=== PATIENT | male | born 1980 | race Caucasian/White ===

== ENCOUNTER 2021-05-13 14:29 | Emergency (ER) | payer MEDICAID ==
[~2021-05-13] VITALS: Ht 172.7 cm; Wt 90.0 kg
[2021-05-13 14:37] VITALS: BP 128/86
[2021-05-13] MEDS ORDERED: HYDROCODONE/ACETAMINOPHEN 5/325MG TABLET PO STA (18:11)
[2021-05-13 18:36] LABS: BASOPHILS % 0.4 % (0.0-2.0); EOSINOPHILS % 1.4 % (0.0-5.0); HEMATOCRIT. 42.7 % (42.0-52.0); HEMOGLOBIN. 14.5 g/dL (14.0-18.0); LYMPHOCYTES % 33.3 % (20.0-50.0); MEAN CORPUSCULAR HEMOGLOBIN 28.5 pg (28.0-32.0); MEAN CORPUSCULAR VOLUME 84.1 fL (80.0-94.0); MONOCYTES % 11.1 % (2.0-8.0); NEUTROPHILS % 53.8 % (40.0-76.0); PLATELET 265 x1000/uL (130-400); RED BLOOD CELL COUNT 5.08 mill/uL (4.7-6.1); RED CELL DISTRIBUTION WIDTH 13.6 % (11.6-14.6)
[2021-05-13 18:40] LABS: CHLORIDE 109 mEq/L (98-107)
== END 2021-05-13 23:39 | disposition left against medical advice (07) ==
LOC: ER 14:29
DX: R10.32 Left lower quadrant pain (principal); R10.12 Left upper quadrant pain; R19.7 Diarrhea, unspecified
CPT/HCPCS: 36415; 80053; 85025; 99283

== ENCOUNTER 2021-05-14 08:13 | Inpatient (IN) | payer MEDICAID, OTHER ==
[~2021-05-14] VITALS: Ht 172.7 cm; Wt 98.9 kg
[2021-05-14] MEDS ORDERED: MAGNESIUM/ALUMINUM HYDROXIDE/SIMETHICONE 30ML UDC PO NR (11:16)
[2021-05-14] MEDS ORDERED: LIDOCAINE HCL 20 MG/ML 100ML BOTTLE PO NR (11:23)
[2021-05-14 11:29] LABS: BASOPHILS % 0.3 % (0.0-2.0); EOSINOPHILS % 0.9 % (0.0-5.0); HEMATOCRIT. 43.2 % (42.0-52.0); HEMOGLOBIN. 14.8 g/dL (14.0-18.0); LYMPHOCYTES % 29.7 % (20.0-50.0); MEAN CORPUSCULAR HEMOGLOBIN 29.3 pg (28.0-32.0); MEAN CORPUSCULAR VOLUME 85.7 fL (80.0-94.0); MEAN PLATELET VOLUME 7.4 fl (7.4-10.4); MONOCYTES % 10.3 % (2.0-8.0); NEUTROPHILS % 58.8 % (40.0-76.0); PLATELET 240 x1000/uL (130-400); RED BLOOD CELL COUNT 5.04 mill/uL (4.7-6.1); RED CELL DISTRIBUTION WIDTH 13.7 % (11.6-14.6)
[2021-05-14 11:36] LABS: CHLORIDE 110 mEq/L (98-107)
[2021-05-14 11:51] LABS: CLARITY URINE CLEAR (CLEAR); COLOR URINE YELLOW (YELLOW); KETONES URINE NEGATIVE (NEGATIVE); LEUKOCYTE ESTERASE URINE NEGATIVE (NEGATIVE); NITRITE URINE NEGATIVE (NEGATIVE); OCCULT BLOOD URINE NEGATIVE (NEGATIVE); PH URINE 5.5 (4.5-8.0); PROTEIN URINE NEGATIVE (NEGATIVE); SPECIFIC GRAVITY URINE 1.034 (1.005-1.030); UROBILINOGEN URINE 0.2 E.U./dL (0.2-1.0)
[2021-05-14] MEDS ORDERED: IOHEXOL-300 100 ML BOTTLE ONE (14:40)
[2021-05-14 22:20] VITALS: BP 127/57
[2021-05-14] MEDS ORDERED: IPRATROPIUM/ALBUTEROL 0.5-3(2.5)MG/3ML NEB HHN PRN (23:45)
[2021-05-14] MEDS ORDERED: NITROGLYCERIN 0.4MG TABLET SL SL PRN (23:45)
[2021-05-14] MEDS ORDERED: ENOXAPARIN 40MG/0.4ML SYR SUBCUT SCH (23:45)
[2021-05-14] MEDS ORDERED: HYDRALAZINE 20MG/ML VIAL IV PRN (23:45)
[2021-05-14] MEDS ORDERED: ACETAMINOPHEN 650MG SUPP PR PRN ×2 (23:45)
[2021-05-14] MEDS ORDERED: ONDANSETRON HCL 4MG/2ML INJ IV PRN (23:45)
[2021-05-14] MEDS ORDERED: KETOROLAC 15MG/ML VIAL IV PRN (23:45)
[2021-05-14] MEDS ORDERED: LORAZEPAM 2MG/ML CPJ IV PRN (23:45)
[2021-05-15] VITALS: BP 103/67
[2021-05-15] MEDS: DEXT 5%/LACTATED RINGERS 1,000 ML IV SCH ×2 (00:43→13:05)
[2021-05-15 04:00] VITALS: BP 102/65
[2021-05-15 08:00] VITALS: BP 99/59
[2021-05-15 08:09] LABS: BASOPHILS % 0.4 % (0.0-2.0); EOSINOPHILS % 1.9 % (0.0-5.0); HEMOGLOBIN. 14.5 g/dL (14.0-18.0); LYMPHOCYTES % 33.3 % (20.0-50.0); MEAN CORPUSCULAR HEMOGLOBIN 29.3 pg (28.0-32.0); MEAN CORPUSCULAR VOLUME 85.1 fL (80.0-94.0); MEAN PLATELET VOLUME 7.5 fl (7.4-10.4); MONOCYTES % 8.6 % (2.0-8.0); NEUTROPHILS % 55.8 % (40.0-76.0); PLATELET 249 x1000/uL (130-400); RED BLOOD CELL COUNT 4.93 mill/uL (4.7-6.1); RED CELL DISTRIBUTION WIDTH 13.6 % (11.6-14.6)
[2021-05-15 08:19] LABS: CHLORIDE 107 mEq/L (98-107)
[2021-05-15 08:25] LABS: PHOSPHORUS 3.3 mg/dL (2.5-4.9)
[2021-05-15 08:28] LABS: TOTAL IRON BINDING CAPACITY 340 ug/dL (250-450)
[2021-05-15] MEDS: PANTOPRAZOLE SODIUM 40 MG/VIAL IV SCH (08:30)
[2021-05-15] MEDS: ENOXAPARIN 30MG/0.3ML SYR SUBCUT SCH ×2 (08:30→21:22)
[2021-05-15 08:42] LABS: VITAMIN B12 SERUM 402 pg/mL (211-911)
[2021-05-15 08:43] LABS: FOLIC ACID (FOLATE) SERUM >20 ng/mL ng/mL (>5.38)
[2021-05-15 12:00] VITALS: BP 100/51
[2021-05-15 16:00] VITALS: BP 121/67
[2021-05-15 19:58] VITALS: BP 130/76
[2021-05-16] VITALS: BP_SYST 160
[2021-05-16 01:26] LABS: *AMPHETAMINES SCREEN URINE NEGATIVE (NEGATIVE); *BARBITURATES SCREEN URINE NEGATIVE (NEGATIVE); *BENZODIAZEPINES SCREEN URINE NEGATIVE (NEGATIVE); *COCAINE SCREEN URINE NEGATIVE (NEGATIVE); METHADONE URINE SCREEN NEGATIVE (NEGATIVE); OPIATES URINE SCREEN NEGATIVE (NEGATIVE)
[2021-05-16 01:27] LABS: CANNABINOID URINE SCREEN PRESUMTIVE POSITIVE (NEGATIVE); PHENCYCLIDINE URINE SCREEN NEGATIVE (NEGATIVE)
[2021-05-16 04:30] VITALS: BP 106/71
[2021-05-16] MEDS: DEXT 5%/LACTATED RINGERS 1,000 ML IV SCH (05:29)
[2021-05-16 08:00] VITALS: BP 101/57
[2021-05-16] MEDS: ENOXAPARIN 30MG/0.3ML SYR SUBCUT SCH (08:56)
[2021-05-16] MEDS: PANTOPRAZOLE SODIUM 40 MG/VIAL IV SCH (08:57)
[2021-05-16] MEDS ORDERED: DIATR MEGLU/DIATRIZOATE SOLN 120ML ONE (10:09)
[2021-05-16 12:00] VITALS: BP 121/89
[2021-05-16 13:25] VITALS: BP 103/71
[2021-05-16 16:00] VITALS: BP 103/71
[2021-05-17] MEDS ORDERED: FAMOTIDINE 20MG/2ML VIAL IV SCH (09:00)
== END 2021-05-16 18:00 | disposition home or self-care (01) | DRG 247 ==
LOC: ER 08:13 → EDBEDREQTM 16:32 → EDBEDREQ 16:32 → ENRESERV 21:08 → 8WST 22:24
PROVIDERS: ADMIT Internal Medicine; ATTEND Internal Medicine
DX: K56.600 Partial intestinal obstruction, unspecified as to cause (principal); K76.0 Fatty (change of) liver, not elsewhere classified; E66.9 Obesity, unspecified; Z86.16 Personal history of COVID-19; Z87.891 Personal history of nicotine dependence; Z68.33 Body mass index [BMI] 33.0-33.9, adult
CPT/HCPCS: 36415; 74018; 74177; 74250; 80053; 80305; 81003; 82607; 82746; 83540; 83550; 83735; 84100; 84443; 85025; 93970; 99285; C9113; J1650; J1885; J7121; Q9963; Q9967